=== PATIENT | female | born 1955 | race Caucasian/White ===

== ENCOUNTER 2017-12-29 13:34 | Emergency (ER) | payer OTHER ==
[2017-12-29 13:40] VITALS: PULSE 82; RESP 18
--- NOTE | 2017-12-29 14:55 | C.PDOC ---
History Of Present Illness 62 year old female patient comes in for evaluation of right middle finger pain that developed yesterday after hitting the edge of a table. Patient reports the pain is localized in the finger and is worse with movement. Patient denies deformity on injured area , weakness, sensory or vascular deficits. Time Seen by Provider: 12/29/17 13:37 Chief Complaint (Nursing): Finger,Hand,&Wrist History Per: Patient History/Exam Limitations: no limitations Onset/Duration Of Symptoms: Hrs Current Symptoms Are (Timing): Still Present Past Medical History Reviewed: Historical Data, Nursing Documentation, Vital Signs Vital Signs: Last Vital Signs Temp 98 F 12/29/17 15:17 Pulse 82 12/29/17 15:17 Resp 18 12/29/17 15:17 BP 132/82 12/29/17 15:17 Pulse Ox 100 12/29/17 15:17 - Medical History PMH: HTN, Hypercholesterolemia Family History: States: No Known Family Hx - Social History Hx Alcohol Use: No Hx Substance Use: No - Immunization History Hx Tetanus Toxoid Vaccination: Yes Hx Influenza Vaccination: Yes Hx Pneumococcal Vaccination: No Review Of Systems Except As Marked, All Systems Reviewed And Found Negative. Constitutional: Negative for: Weakness Musculoskeletal: Positive for: Hand Pain (right middle finger pain). Negative for: Other (deformity of right middle finger) Physical Exam - Physical Exam Appears: Well, Non-toxic, No Acute Distress Skin: Normal Color, Warm, No Ecchymosis Head: Normacephalic Extremity: Normal ROM (mild discomofrt to Right 3rd finiger flexion at MCPJ due to pain, no neurovscular deficits.), Tenderness (Right 3rd phalanx tenderness over MCPJ extend up to proxkmal phalanx. NO obvious deofmrity, no skin changes.) , Capillary Refill (Right 3rd finger), No Deformity, No Swelling Neurological/Psych: Oriented x3, Normal Speech, Normal Motor, Normal Sensation, Normal Reflexes ED Course And Treatment O2 Sat by Pulse Oximetry: 97 (RA) Pulse Ox Interpretation: Normal Progress Note: On re-eval, pt is afebrile, hemodynamicaly stable. Right hand: tendernes sover 3rd MCPJ no obvious deformity, no edema. NO neurovascular deficits. Imaging review (-) acute fx noted. Finger splint, aluminium applied to Right 3rd finger. Pt advised and ref. to f/U with hand specialist in 2 days for re-eavl. Disposition Counseled Patient/Family Regarding: Diagnosis, Need For Followup - Disposition Referrals: Kelly Baeza MD [Staff Provider] - Disposition: HOME/ ROUTINE Disposition Time: 14:25 Condition: STABLE Additional Instructions: Finger splint for 1-2 weeks take medication as prescribed Follow up with Hand specialist in 2-3 days for re-evaluation. Prescriptions: Ibuprofen [Motrin Tab] 600 mg PO TID #20 tab Instructions: Finger Sprain (DC) Forms: [email or web address] (Lithuanian) - Clinical Impression Clinical Impression: Finger contusion - PA / INFORMATION SYSTEMS SECURITY ANALYST / Resident Statement / has reviewed & agrees with the documentation as recorded. - Scribe Statement The provider has reviewed the documentation as recorded by the Allison Gibson Do All medical record entries made by the Scribe were at my direction and personally dictated by me. I have reviewed the chart and agree that the record accurately reflects my personal performance of the history, physical exam, medical decision making, and the department course for this patient. I have also personally directed, reviewed, and agree with the discharge instructions and disposition.
[2017-12-29 15:18] VITALS: BP 132/82; TEMP 98
--- NOTE | 2017-12-29 18:15 | RAD ---
Date of service: 12/29/2017 PROCEDURE: Right middle finger radiographs. HISTORY: injury COMPARISON: None. TECHNIQUE: AP radiograph of the right hand, as well as spot oblique and lateral images of right middle finger were obtained. FINDINGS: RIGHT MIDDLE FINGER: Right middle finger normal, without fracture of focal lesion. Remainder of the right hand (as seen on the AP view) grossly unremarkable. JOINTS: Normal. SOFT TISSUES: Normal. OTHER FINDINGS: None. IMPRESSION: Unremarkable right middle finger radiographs.
[2017-12-29 21:23] VITALS: O2SAT 97
== END 2017-12-29 15:17 | disposition home or self-care (01) ==
LOC: C.ER 13:34
DX: S60.031A Contusion of right middle finger without damage to nail, initial encounter (principal); W22.03XA Walked into furniture, initial encounter; Y92.9 Unspecified place or not applicable